=== PATIENT | female | born 1975 | race Caucasian/White ===

== ENCOUNTER → 2020-06-06 16:26 | Outpatient (CLI) | payer BC, SELFPAY ==
--- NOTE | ~2020-06-06 | MM_ITS ---
EXAMINATION: MM scrn chitra implant BI w jaswinder HISTORY: Screening TECHNIQUE: Craniocaudal and mediolateral oblique 3-D tomosynthesis images with implant displacement a nd synthetic 2-D images were generated. Craniocaudal and mediolateral oblique views of the breasts wi thout implant displacement were obtained using full field digital mammography. CAD analysis was submi tted and interpreted. COMPARISON: No prior mammogram is available for comparison at this institution. BREAST PARENCHYMAL COMPOSITION: The breasts are heterogeneously dense, which may obscure small masses . FINDINGS: There are bilateral subpectoral saline implants. There is no evidence of suspicious mass, c alcification, or architectural distortion to suggest malignancy in either breast. There has been no s uspicious interval change. IMPRESSION: 1. No mammographic evidence of malignancy. 2. Recommend routine screening mammography in one year. BI-RADS CATEGORY 1 - NEGATIVE Reviewed, dictated and finalized at location A. E CLASSIFIER
== END ==
PROVIDERS: Visit Provider Advanced Practice Midwife
DX: Z12.31 Encounter for screening mammogram for malignant neoplasm of breast (principal)
CPT/HCPCS: 77063; 77067

== ENCOUNTER 2021-03-15 13:24 | Outpatient (CLI) | payer BC, SELFPAY ==
--- NOTE | ~2021-03-15 | MMUS_ITS ---
EXAMINATION: MM diag chitra implant RT w jaswinder, US breast RT complete HISTORY: Palpable right breast lump TECHNIQUE: Additional 3-D tomosynthesis images of the right breast were performed and synthetic 2-D i mages were generated. CAD analysis was submitted and interpreted. High resolution complete right [address] st ultrasound was performed. COMPARISON: 06/06/2020 BREAST PARENCHYMAL COMPOSITION: Breast composed of scattered areas of fibroglandular density. FINDINGS: MAMMOGRAPHIC FINDINGS: There are no suspicious masses, calcifications or architectural distortion in the right breast to sug gest malignancy. There is a subpectoral saline implant. ULTRASOUND: Complete right breast ultrasound: At 12:00 near the nipple there is a 6 mm cyst. At 1:00, 10 cm from the nipple in the area of palpable concern there is an oval hyperechoic mass with horizontally orient ed striations measuring 1.8 cm, compatible with benign lipoma. At 6:00, 3 cm from the nipple there is a 2 mm cyst. Breast implant identified. IMPRESSION: 1. No evidence for malignancy in the right breast. Benign findings. 2. Routine yearly screening mammogram and regular clinical breast examination are recommended. BI-RADS Category 2: Benign finding(s). Reviewed, dictated and finalized at location A. IMPRESSION: 1. No evidence for malignancy in the right breast. Benign findings. 2. Routine yearly screening mammogram and regular clinical breast examination a re recommended. BI-RADS Category 2: Benign finding(s).
== END 2021-03-15 13:25 | disposition home or self-care (01) ==
LOC: ANHIMG 13:26
PROVIDERS: Visit Provider Advanced Practice Midwife
DX: N63.10 Unspecified lump in the right breast, unspecified quadrant (principal)
CPT/HCPCS: 76641; 77061; 77065; G0279

== ENCOUNTER → 2021-10-01 15:23 | Outpatient (CLI) | payer BC, SELFPAY ==
--- NOTE | ~2021-10-01 | MM_ITS ---
EXAMINATION: MM scrn chitra implant BI w jaswinder HISTORY: Screening mammogram TECHNIQUE: Craniocaudal and mediolateral oblique 3-D tomosynthesis images with implant displacement a nd synthetic 2-D images were generated. Craniocaudal and mediolateral oblique views of the breasts wi thout implant displacement were obtained using full field digital mammography. CAD analysis was submi tted and interpreted. COMPARISON: 03/15/2021 diagnostic right implant mammogram and complete right breast ultrasound 06/06/2020 bilateral implant screening mammogram BREAST PARENCHYMAL COMPOSITION: The breasts are heterogeneously dense, which may obscure small masses . FINDINGS: Status post bilateral augmentation mammoplasty. There is no evidence of suspicious mass, ca lcification, or architectural distortion to suggest malignancy in either breast. There has been no willett spicious interval change. IMPRESSION: 1. No mammographic evidence of malignancy. 2. Recommend routine screening mammography in one year. BI-RADS Category 1: Negative Reviewed, dictated and finalized at location A.
== END ==
PROVIDERS: Visit Provider Advanced Practice Midwife
DX: Z12.31 Encounter for screening mammogram for malignant neoplasm of breast (principal)
CPT/HCPCS: 77063; 77067

== ENCOUNTER 2023-12-08 13:53 | Outpatient (CLI) | payer BC, SELFPAY ==
--- NOTE | ~2023-12-08 | MM_ITS ---
EXAMINATION: MM scrn chitra implant BI w jaswinder HISTORY: Screening mammogram TECHNIQUE: Craniocaudal and mediolateral oblique 3-D tomosynthesis images with implant displacement a nd synthetic 2-D images were generated. Craniocaudal and mediolateral oblique views of the breasts wi thout implant displacement were obtained using full field digital mammography. CAD analysis was submi tted and interpreted. COMPARISON: 10/01/2021, 03/15/2021, 06/06/2020 BREAST PARENCHYMAL COMPOSITION: The breasts are extremely dense, which lowers the sensitivity of mamm ography. FINDINGS: There is no evidence of suspicious mass, calcification, or architectural distortion to sugg est malignancy in either breast. There has been no suspicious interval change. IMPRESSION: No mammographic evidence of malignancy. Recommend routine screening mammography in one year. BI-RADS Category 1: Negative Reviewed, dictated and finalized at [facility].
== END 2023-12-08 13:54 | disposition home or self-care (01) ==
LOC: ANHIMG 13:54
PROVIDERS: Visit Provider Advanced Practice Midwife
DX: Z12.31 Encounter for screening mammogram for malignant neoplasm of breast (principal)
CPT/HCPCS: 77063; 77067

== ENCOUNTER 2024-07-29 13:26 | Outpatient (CLI) | payer BC, SELFPAY ==
--- NOTE | ~2024-07-29 | MMUS_ITS ---
EXAMINATION: US breast RT limited, MM diag chitra implant RT w jaswinder HISTORY: Palpable right breast mass TECHNIQUE: Additional 3-D tomosynthesis images of right were performed and synthetic 2-D images were generated. CAD analysis was submitted and interpreted. High resolution Limited right breast ultrasoun d was performed. COMPARISON: Comparison to multiple prior studies sequentially, with oldest reviewed study dated 05/16. BREAST PARENCHYMAL COMPOSITION: Not dense: There are scattered areas of fibroglandular density. FINDINGS: MAMMOGRAPHIC FINDINGS: There are no suspicious masses, calcifications or architectural distortion in the right breast to sug gest malignancy. ULTRASOUND: Limited right breast ultrasound: At 1:00, 12 cm from the nipple there is an oval capsulated hypoechoi c mass with horizontal striations, compatible with benign lipoma measuring 3.2 x 2.4 x 0.9 cm. No jessa picious masses to suggest malignancy. IMPRESSION: 1. No evidence for malignancy in the right breast. Benign finding. 2. Routine yearly screening mammogram and regular clinical breast examination are recommended. BI-RADS Category 2: Benign finding(s). Reviewed, dictated and finalized at location B. [facility] IMPRESSION: 1. No evidence for malignancy in the right breast. Benign finding. 2. Routine yearly screening mammogram and regular clinical breast examination a re recommended. BI-RADS Category 2: Benign finding(s).
--- OUTSIDE RECORDS SUMMARY | 2024-07-29 13:33 | XMS_ITS | Clinical Summary ---
Author Organization [facility] Address [address] [place] [id number] Care Team Providers Care Career Development Engineer Name Role Phone Edie Palafox [facility] Primary Care Provider + Allergies No known active allergies Medications Alcohol Swabs (ALCOHOL PREP) 70 % Pads 2017 Active Blood Glucose Monitoring Suppl (ONE TOUCH ULTRA MINI) w/Device Kit 2017 Active ONETOUCH DELICA [facility] 2017 Active Norethindrone, Contraceptive, 0.35 MG tablet 2017 Active B-D UF III MINI PEN NEEDLES 31G X 5 MM [facility] U UTD ONCE A DAY WITH LANTUS 1 2017 Active insulin glargine 100 UNIT/ML injection (PEN)Indications :Type 1 diabetes mellitus without complication (CMS/HCC HHS/HCC) Inject 20 Units into the skin 2 (two) times daily. 9 pen 1 2018 Active Additional Information Patient taking differently: 34 UnitsSubcutaneousNightly at bedtime, Indications: Lantus, Reported on 03/18/2021 HUMALOG KWIKPEN 100 UNIT/ML injection (PEN) INJ 20 UNI SC TID 3 2018 Active Continuous Blood Gluc Sensor (FREESTYLE BARI 2 SENSOR) [facility] Will use 2 sensors per month. 2020 Active Glucagon (BAQSIMI ONE PACK) 3 MG/DOSE Powder Baqsimi 3 mg/actuation nasal spray USE 1 SPRAY IN 1 NOSTRIL NEEDED IN CASE OF EMERGENCY FOR HYPOGLYCEMIA 08/30 Active levothyroxine (EUTHYROX) 75 MCG tablet Euthyrox 75 mcg tablet TAKE 1 TABLET BY MOUTH ONCE DAILY 2020 Active ondansetron 4 MG disintegrating tabletIndication s:Nausea Take 1 tablet (4 mg total) by mouth every 8 (eight) hours as needed for Nausea. 20 tablet 2020 Active omeprazole 40 MG capsuleIndicatio ns:Bilious vomiting with nausea Take 1 capsule (40 mg total) by mouth daily. 30 capsule 1 2020 Active Active Problems Problem Noted Date Diagnosed Date Obesity due to excess calories without serious c omorbidity 12/06/2020 Generalized edema 09/18/2020 Overview (03/18/2021): Last Assessment & Plan: Spironolactone Repeat BMP in 6-8 weeks Type 1 diabetes mellitus wit hout complication ([facility]) 04/26/2018 Overview (03/18/2021): Increase lantus to 40 Last Assessment & Plan: Have evaluated the risks and benefits of current therapy versus potential alternatives in terms of improving or controlling disease state and interaction with other medications and condition.. Have discussed implications of therapy compliance regarding future complications with the patient. Will continue current therapy Nontoxic multinodular goiter 06/14/2012 Overview (04/26/2018): US 05/26, repeat 4-6 mos Asthma ([facility]) 05/08/2012 Primary hypothyroidism 05/08/2012 Overview (03/18/2021): check labs. Same meds Immunizations Name Administration Dates Next Due Tdap (Generic) 01/07/2009 Family History Medical History Relation Comments Diabetes Father Hypertension Mother Throat Cancer Mother Thyroid Cancer Mother Relation Status Comments Father Alive Mother Alive thyroid/throat Social History Tobacco Use Types Packs/Day Years Used Date Smoking Tobacco: Former Cigarettes 0.3 27 1 993 - 2020 Smokeless Tobacco: Never Tobacco Cessation:Counseling Given: Yes Comments:trying to quit pt has STOPPED smoking. Alcohol Use Standard Drinks/Week Comments No 0 (1 standard drink = 0.6 oz pur e alcohol) rarely AUDIT-C Answer Date Recorded Frequency of Alcohol Consumption Never 04/26/2018 Average Number of Drinks Not on file 018 Frequency of Binge Drinking Not on file 04/15 PHQ-2 Answer Date Recorded PHQ-2 Score - If the patient scores above 3, please move on to questions 3-9 0 04/24/2021 Comments No Sex and Gender Information Value Date Recorded Sex Assigned at Not on file Legal Sex Female 8:35 PM CDT Gender Identity Not on file Sexual Orientation Not on file Occupation Industry Job Start Date Job End Date Not on file Not on file Not on file Not on file Last Filed Vital Signs Vital Sign Reading Time Taken Comments Blood Pressure 120/72 04/24/2021 3:58 PM GRIND OPERATOR Pulse 75 04/24/2021 3:58 PM GRIND OPERATOR Temperature 36.3 C (97.3 F) 04/24/2021 3:58 PM GRIND OPERATOR Respiratory Rate 16 04/24/2021 3:58 PM GRIND OPERATOR Oxygen Saturation 98% 04/24/2021 3:58 PM GRIND OPERATOR Inhaled Oxygen Concentration - - Weight 83.4 kg (183 lb 12.8 oz) 04/24/2021 3:58 PM GRIND OPERATOR Height 170.2 cm (5' 7 ) 04/24/2021 3:58 PM GRIND OPERATOR Body Mass Index 28.79 04/24/2021 3:58 PM GRIND OPERATOR Plan of Treatment Health Maintenance Due Date Last Done Comments Kidney Health Evaluation 1975 Annual Physical 09/28/1978 Pneumococcal Vaccine: Pediatrics (0 to 5 Years) and At-Risk Patients (6 to 64 Years) (1 of 2 - PCV) 09/28/1981 PHQ-2 (Physician [place]) 1987 Diabetes: Retinopathy Eye Exam 09/28/1993 Hepatitis C 09/28/1993 Hepatitis B Vaccines (1 of 3 - 19+ 3-dose series) 09/28/1994 Mammogram Screening 2015 DTaP, Tdap and Td Vaccines (2 - Td or Tdap) 01/07/2019 01/07/2009 Hemoglobin A1C 06/07/2021 12/06/2020, 03/15, 10/28/2018, Additional history exists Lipid Panel 12/06/2021 12/06/2020, 05/22/2015 COVID-19 Vaccine (3 - 2024-25 season) 2024 09/06/2020, 08/16/2020 Cervical Cancer Screening Pap Smear (Age 30 to 64) Every 3 Years 03/13/2024 03/13/2021 Influenza Adult (#1) 2024 PHQ-2 (Physician [place]) 06/15/2024 Cervical Cancer Screening Pap with HPV Testing (Age 30 to 64) Every 5 Years 03/13/2026 03/13/2021 Cervical Cancer Screening with HPV 03/13/2026 Colorectal Cancer Screening Colonoscopy (10 Years) 05/06/2029 05/06/2019 Meningococcal B Vaccine Aged Out No l onger eligible based on patient's age to complete this topic Meningococcal Vaccine Aged Out No cassie deshaun eligible based on patient's age to complete this topic RSV Immunizations Under 20 Months Aged Out No longer eligible based on patient's age to complete this topic Procedures Procedure Name Priority Date/Time Associated Diagnosis Comments OUTSIDE CYTOPATH CERV/VAG INTERPRET (PAP) Routine 03/13/2021 HEMOGLOBIN, GLYCOSYLATED Routine 12/06/2020 LIPID PANEL Routine 05/22/2015 8:01 AM GRIND OPERATOR from Last 3 Months or Most Recently Relevant to Health Maintenance Results * PAP SMEAR WITH HPV (03/13/2021) 03/13/2021 us Documents Scanned SCANNING Final Result [facility] * HEMOGLOBIN, GLYCOSYLATED (12/06/2020) HGB A1C 6.5 % 12/06/2020 us Doc [facility] Final Result * (ABNORMAL) LIPID PANEL (05/22/2015 8:01 AM GRIND OPERATOR) CHOLESTEROL 152 <200 MG/DL [facility] P TO EPIC CONVERSION TRIGLYCERIDES 91 <150 MG/DL [facility] OUP TO EPIC CONVERSION HDL 39(L) >60 MG/DL [facility] T O EPIC CONVERSION Comment:AN HDL OF >60 IS NO RISK, RISK IS DEFINED <40 LDL (CALCULATED) 95 <100 MG/DL [facility] TO EPIC CONVERSION Comment: AN LDL OF <100 IS OPTIMAL, ELEVATED IS DEFINED >130 BY CURRENT GUIDELINES, LDL GOALS ARE DEPENDENT UPON OTHER RISK FACTORS 05/22/2015 8:01 AM GRIND OPERATOR 05/22/2015 8:01 AM GRIND OPERATOR Narrative [facility] TO EPIC CONVERSION - 05/22/2015 8:01 AM GRIND OPERATOR [AUTO]: This test was reviewed. us [facility] Final Result [facility] TO EPIC CONVERSION from Last 3 Months or Most Recently Relevant to Health Maintenance Insurance Care Teams Career Development Engineer Relationship Specialty Start Date End Date Edie Palafox, ASSOCIATE PROFESSOR OF ANTHROPOLOGY-[employer] [id number], [address] [place] [address] PCP - General Nurse Practitioner Family 04/03/23
--- OUTSIDE RECORDS SUMMARY | 2024-07-29 13:33 | XMS_ITS | Data Portability ---
Author Organization [facility] [place] Address [address] [place] [address] Care Team Providers Care Dairy Lab Technician Name Role Phone TG FLORES Primary Care Provider Assessment Encounter Date Assessment Date Assessment LastModified by Organization Details LastModified Time 03/06/2020 03/06/2020 Annual gynecological exam performed. Patient will come back in a year unless there are new symptoms. Not available 03/06/2020 18:47:37 03/13/2021 03/13/2021 Annual gynecological exam performed. Patient will come back in a year unless there are new symptoms. Suggest Calcium with Vitamin D if not eating in diet. Patient advised to get annual flu shot. Recommend yearly physicals and preform monthly breast exams. Genetic testing is available for patients with family history of cancer. Engage in safe sexual practices, use condoms. Encouraged to have daily exercise. Avoid tobacco and illicit drugs, moderation of alcohol. If BMI greater than 25 dietary consult advised. If you have any questions please call or email. [email or web address] Not available 03/13/2021 17:45:11 02/25/2023 02/25/2023 Annual gynecological exam performed. Patient will come back in a year unless there are new symptoms. Suggest Calcium with Vitamin D if not eating in diet. Patient advised to get annual flu shot. Recommend yearly physicals and preform monthly breast exams. Genetic testing is available for patients with family history of cancer. Engage in safe sexual practices, use condoms. Encouraged to have daily exercise. Avoid tobacco and illicit drugs, moderation of alcohol. If BMI greater than 25 dietary consult advised. If you have any questions please call or email. mammogram order given try the [place] plan for menopausal weight loss Not available 02/25/2023 20:20:18 07/15/2024 07/15/2024 Annual gynecological exam performed. Patient will come back in a year unless there are new symptoms. Suggested Calcium with Vitamin D 1200-1500mg daily. Patient advised to get an annual flu shot in the fall and she could obtain at [facility] or [facility] care clinic. Also to obtain TDap vaccination if you have not had one in the last 10 years. Recommend yearly mammograms. Encouraged monthly self breast exams. Encourage safe sexual practices, to use condoms and limit partners if not already in a monogamous relationship. Engage in daily exercise of low impact aerobic exercise 45-60 minutes 4-5 times weekly. Avoid tobacco and illicit drugs as well as using moderation with alcohol intake less than 1-2 8 oz beverages daily. This lifestyle behavior pattern will lead to less health conditions and longer life span. If BMI greater than 25 weight watchers or dietary consult advised. All questions have been answered. Patient appears to understand information, but if you have any questions please call or respond to this email. order for chest wall US pap collected pill for bcm unless decides to do IUD, will call if desires placement Not available 07/15/2024 17:18:01 Plan of Treatment Reminders Order Date Submit Date Provider Last Modified By Organization Details Last Modified Time Details Appointments None recorded. Lab None recorded. Referral None recorded. Procedures None recorded. Surgeries None recorded. Imaging None recorded. Medication Orders Keely 0.35 mg tablet 023 023 [id number], [address], [place], [id number], 3 20:19:59 Patient TargetsNo targets recorded. Patient Instructions Encounter Date Encounter Id Patient Instructions Last Modified By Organization Details Last Modified Time 03/06/2020 mammogram order given, rec nicotine patches Suggest Calcium with Vitamin D if not eating in diet. Patient advised to get annual flu shot. Recommend yearly physicals and preform monthly breast exams. Genetic testing is available for patients with family history of cancer. Engage in safe sexual practices, use condoms. Encouraged to have daily exercise. Avoid tobacco and illicit drugs, moderation of alcohol. If BMI greater than 25 dietary consult advised. If you have any questions please call or email. Not available 03/07/2020 09:25:50 04/20/2020 [id number] f/u pending pathology Not available 04/20/2020 15:23:34 Reason for Referral None Reported. Results Created Date Observation Date Name Description Value Unit Range Abnormal Flag Note LastModifiedBy Organization Detail LastModifiedTime 03/06/20 20 03/09/2020 pap, LB Pap test thin prep LOW GRADE SQUAMO US INTRAE PITHEL IAL LESION abnormal ACCES BRIAN #: [id number] Sourc e: Cervi wilber/E ndoce rvica l LMP: 020 Date Taken : 03/06 Speci men Type: ThinP rep Vial Date Repor brea: 2019 Clini wilber Data: Cytot ech: Sylvia Colbert T(ASC P) Navjot ewnig MD elect dianelys rivera mei d 2019 at 1:46 PM Speci men Adequ acy: Satis facto ry for evalu ation Some cells obscu red by infla mmati on Endoc ervic al/tr ansfo rmati on zone compo nent prese nt Gener al Categ oriza tion: EPITH ELIAL CELL ABNOR MALIT Y: SEE INTER PRETA TION/ RESUL T Inter preta tion/ Resul t: LOW GRADE SQUAM OUS INTRA EPITH ELIAL LESIO N This speci men has been barb zed by the ThinP rep Imagi ng Syste m, an inter activ e compu ter syste m which remy ts the lab in the scree hermilo of ThinP rep Pap Test slide s. Follo wing imagi ng, the slide was revie wed by a Cytot echno logis t and/o r Patho logis t. D N A A S S A Y S R E P O R T TEST NAME RESUL TS ----- ---- ----- -- HPV High Risk Ellen n (TMA) ThinP rep Vial The human papil lomav irus (HPV) High Risk Óscarelida ewing is an FDA-a pprov ed in-vi tro ampli fied nucle ic acid test for the quali tativ e detec tion of E6/E7 viral mRNA. Resul ts shoul d be corre lated with patie nt prese ntati on, histo ry, cervi wilber cytol ogy and other clini wilber and labor atory findi ngs. See https ://[employer]/s ites/ defau lt/fi 018-0 3- 99527 _002_ .pd f for furth er infor matio n. Test perfo rmed by [employer] [facility] [employer] [facility], d/b/a [facility], [address], [place] [address] , Jonny Sales ra, , Labor atory Dire tor. HPV High Risk *HPV NOT DETEC BREA (TYPE S 16, 18, 31, 33, 35, 39, 45, 51, 52, 56, 58, 59, 66, 68) *HPV: The human papil lomav irus (HPV) High Risk Ellen ewing is an FDA-a pprov ed in-vi tro ampli fied nucle ic acid test for the quali tativ e detec tion of E6/E7 viral mRNA. Resul carmen posadas d be corre lated with patie nt prese ntati on, histo ry, cervi wilber cytol ogy and other clini wilber and labor atory findi ngs. See https ://[employer]/s ites/ defau lt/fi -0 /- 73883 _002_ 01.pd f for furth er infor matio n. Test perfo rmed by [facility] [facility], d/b/a [facility], [address], [place] [address] , Jonny Sales ra, DO, Labor atory Dire tor. End of Repor t Techn ical servi villa provi ded by [employer] [facility] Patho logis [employer], d/b/a [facility] r[facility], [address] [place] [address] Toribio Eagle MD, Labor atorBidRazor Dire tor. Case revie wed and diagn osis rende red at [facility], [facility], d/b/a Senia helms, [address] , [place] [address] Toribio Eagle MD, Labor atory Dire tor. CONFI DENTI AL Not Available [facility] ([facility]) [address], [place], [address], 03/09/2020 15:04:39 03/06/20 20 03/08/2020 HPV DNA, high- risk HPV high risk NOT DETECT ED normal Not Available [facility] ([facility]) [address] [facility], [place], [address], 03/09/2020 15:04:39 04/20/20 20 05/01/2020 surgi wilber patho logy study surgical pathology View Report ACCES BRIAN #: [id number] Patie nt Name: TRACI ROJAS Age-S ex-DO B: 44y F [birth year] Proce dure Date: 04/20 Acces brian Date: 2019 Pt Acct# : Repor t Date: 05/01 Locat ion: OFFIC E Physi eugenio( s): Shy matos P A T H O L O G Y R E P O R T DIAGN OSIS: 1. Endoc ervix , curet tage: Few endoc ervic al gland ular cells , no patho logic abnor malit y. Predo minan tly blood and mucus . 2. Cervi x, biops y: Squam ous mucos a with react nilton penny. 3. Skin, butt area; biops y: Pigme nted kerat osis, consi stent with sebor rheic kerat osis. See comme nt. Comme nts: Speci men #3 conta ins a polyp oid kerat osis with overa ll featu res sugge sting a sebor rheic kerat osis. An immun ohist ochem ical study with p16 demon strat es patch y stain ing. Ki 67 is negat nilton for signi fican tly incre ased or disor ganiz ed proli ferat ion. The featu res are not diagn ostic of a high- grade squam ous intra epith elial lesio n. The case was discu ssed with Shy Murdockjanice matos. She repor brea addit ional detai l that the kerat osis was locat ed appro ximat linda 5 centi meter s from the anus. The patie nt's histo ry is noted of a prior Pap test demon strat ing low grade MARISOL (20- [id number]) . The cervi wilber tissu e studi es are negat nilton for intra epith elial lesio n and invas nilton neopl asm. Speci men #3 was also revie wed by a varinder peace patho patria Contreras MD elect dianelys rivera mei d 05/01 01:30 PM Gross Descr iptio n: 1. Recei abdoul in forma alexander label ed Zirke lbach , Traci e and ECC brush is a wire brist le brush conta ining an aggre gate of bautista-b rown tissu e and mucoi d mater ial measu ring 3.0 x 1.0 x 0.2 cm. The speci men is filte red and entir linda submi tted in casse tte 1A, M/1. 2. Recei abdoul in forma alexander label ed Zirke lbach , Traci e and cervi x bx is a loose aggre gate of white tissu e and mucoi d mater ial measu ring 2.0 x 0.7 x 0.1 cm. The speci men is filte red and entir linda submi tted in casse tte 2A, M/1. 3. Recei abdoul in forma alexander label ed Zirke lbach , Traci e and mole butt area is a raise d, wrink led, philippe skin shave measu ring 0.7 x 0.3 x 0.2 cm. The base is inked blue. The speci men is trise cted and entir linda submi tted in casse tte 3A, 08/13. (JFA, LAC2, lgt) Micro scopi c Descr iptio n: Micro scopi c exami natio n is perfo rmed. Clini wilber Histo ry: Low grade squam ous intra epith elial lesio n on cytol ogic smear of cervi x (LGSI L) (R87. 612); LGSIL on pap Speci men List: 1. ECC 2. Cervi wilber biops y 3. Butt area Consu lts: JFA End of Repor t Techn ical servi villa provi ded by [facility]ie, d/b/a [facility], [address] [place] [address] Toribio Eagle MD, Located Within [facility] [employer]. Case revie wed and diagn osis rende red at [facility] Patho logis [employer], d/b/a [facility], [address], [place] [address] Wilmar Rudolph MD, Labor Electronifie [facility]. CONFI DENTI AL Not Available [facility] ([facility]) [address], [place], [address], 05/01/2020 14:31:29 04/20/20 20 04/20/2020 pregn troy test, urine HCG negati ve Not Available [place] [address], [place], [address], 04/20/2020 15:07:21 03/13/20 21 03/13/2021 IMAGE GUIDE D PAP AND HPV REGAR DLESS image guided Pap, HPV regardless of Pap result SEE RESULT S BELOW CASE REPOR T: Cytol ogy Gynec ologi wilber Repor t Case: [id number] Autho elsa camacho Provi kaylyn: Shy Boyer, KI Colle cted: 03/13 1709 Order ing Locat ion: [place] Patho logy Recei abdoul: 03/14 0104 First Scree n: Bernadine cosme, Arely , [place] Speci men: Scree hermilo Pap - Image d, Cervi x STATE MENT OF ADEQU ACY: Satis facto ry for evalu ation Trans forma tion zone compo nent prese nt FINAL DIAGN OSIS: Negat nilton for Intra epith elial Lesio n or Ronaldaquiles tamara (NIL) Elect dianelys rivera mei d by Arely Schmitt , [place] on 2020 at 9:03 AM ----- ----- ----- ----- ----- ----- ----- ----- ----- ----- ----- ----- ----- ----- ----- ----- ----- ---- HPV RESUL TS: HPV mRNA E6/E7 : No HPV mRNA Detec brea NOTE: This high risk HPV mRNA assay detec ts fourt een high- risk HPV types (16, 18, 31, 33, 35, 39, 45, 51, 52, 56, 58, 59, 66, 68) witho ut diffe renti ation . COMME NT: Note: This speci men was revie wed by a Cytot echno logis t and/o r Patho logis t (as indic ated in this repor t) after evalu ation using the Thinp rep Imagi ng Syste m. CLINI WILBER INFOR MATIO N: Menst rual Statu s: LMP (if appli cable ): 2020 Clini wilber Histo ry/Pr elisa s Pap: Type of Neopl benjamin (if appli cable ): Signi fican t Clini wilber Findi ngs: Other Histo ry: Hormo jem (if appli cable ): PAP EDUCA ANA L NOTE: The Pap Test is a scree hermilo test with an inher ent false negat nilton rate. Liqui d-bas e sampl ing may decre ase, but will not elimi marcelino, false negat nilton resul ts. A negat nilton resul t does not precl ude the prese nce and/o r devel opmen t of disea se, since the prese nce of abnor mal cells in the sampl e depen ds on the locat ion of the lesio n and sampl ing techn ique. Verito nued regul ar scree hermilo is the best metho d of cance r preve ntion . If repor brea cytol ogic findi ng do not corre late with physi wilber and/o r histo rical findi ngs, furth er inves tigat ion is recom emily d, as clini lory vela nted. Not Available [facility] (Lab) [address], [place], [address], 03/19/2021 10:06:55 02/27/20 23 02/26/2023 IMAGE GUIDE D PAP AND HPV REGAR DLESS image guided Pap, HPV regardless of Pap result SEE RESULT S BELOW abnormal CASE REPOR T: Cytol ogy Gynec ologi wilber Repor t Case: [id number] Autho rievgenyn g Provi kaylyn: Shy Boyer, KI Agrawal cted: 02/26 1457 Order ing Locat ion: [place] Patho logy Recei abdoul: 02/27 0321 First Scree n: Noora ni, Moham ed, [place] Patho logis t: Jose Styles MD Speci men: Ellen akhtar Pap - Image d, Cervi x STATE MENT OF ADEQU ACY: Satis facto ry for evalu ation Trans forma tion zone compo nent absen t FINAL DIAGN OSIS: Epith elial Cell Abnor malit y, Squam ous Cell: Atypi wilber Squam ous Cells of Undet ermin ed Signi fican ce (ASC- US). Elect dianelys rivera mei d by Jose Styles MD on 2022 at 10:10 AM ----- ----- ----- ----- ----- ----- ----- ----- ----- ----- ----- ----- ----- ----- ----- ----- ----- ---- HPV RESUL TS: HPV mRNA E6/E7 : No HPV mRNA Detec brea NOTE: This high risk HPV mRNA assay detec ts fourt een high- risk HPV types (16, 18, 31, 33, 35, 39, 45, 51, 52, 56, 58, 59, 66, 68) witho ut diffe renti ation . COMME NT: This speci men was revie wed by a Cytot echno logis t and/o r Patho logis t (as indic ated in this repor t) after evalu ation using the Thinp rep Imagi ng Syste m. CLINI WILBER INFOR MATIO N: Menst rual Statu s: LMP (if appli cable ): Clini wilber Histo ry/Pr eviou s Pap: Type of Neopl benjamin (if appli cable ): Signi fican t Clini wilber Findi ngs: Other Histo ry: Hormo jem (if appli cable ): SUGJORJE STED FOLLO W-UP: Follo w up as warra nted, based on curre nt guide lines and indiv idual patie nt consi derat ions. Not Available [facility] (Lab) [address], [place], [address], 03/02/2023 11:13:56 07/15/19 25 07/15/2024 IMAGE GUIDE D PAP AND HPV REGAR DLESS image guided Pap, HPV regardless of Pap result SEE RESULT S BELOW CASE REPOR T: Cytol ogy Gynec ologi wilber Repor t Case: [id number] Autho elsa camacho Provi kaylyn: Shy Boyer, KI Agrawal cted: 07/15 1615 Order ing Locat ion: [place] Patho logy Recei abdoul: 07/16 1023 First Scree n: Rubia morocho, Toni ed, [place] Patho logis t: Yomaira Jenkins MD Speci men: Ellen akhtar Pap - Image d, Cervi x STATE MENT OF ADEQU ACY: Satis facto ry for evalu ation Trans forma tion zone compo nent prese nt ----- ----- ----- ----- ----- ----- ----- ----- ----- ----- ----- ----- ----- ----- ----- ----- ----- ---- FINAL DIAGN OSIS: Negat nilton for Intra epith elial Lesio n or Deshawn mcdonald (NIL) . Infla mmato ry cell kat[place] es (incl udes typic al repai r). Elect dianelys peace by Yomaira Jenkins MD on 025 at 1525 TIME STAMP ASSEMBLER ----- ----- ----- ----- ----- ----- ----- ----- ----- ----- ----- ----- ----- ----- ----- ----- ----- ---- HPV RESUL TS: HPV mRNA E6/E7 : No HPV mRNA Detec brea NOTE: This high risk HPV mRNA assay detec ts fourt een high- risk HPV types (16, 18, 31, 33, 35, 39, 45, 51, 52, 56, 58, 59, 66, 68) witho ut diffe renti ation . COMME NT: This speci men was revie wed by a Cytot echno logis t and/o r Patho logis t (as indic ated in this repor t) after evalu ation using the Thinp rep Imagi ng Syste m. CLINI WILBER INFOR MATIO N: Menst rual Statu s: LMP (if appli cable ): Clini wilber Histo ry/Pr eviou s Pap: Type of Neopl benjamin (if appli cable ): Signi fican t Clini wilber Findi ngs: Other Histo ry: Hormo jem (if appli cable ): PAP EDUCA ANA L NOTE: The Pap Test is a scree hermilo test with an inher ent false negat nilton rate. Liqui d-bas ed sampl ing may decre ase, but will not elimi marcelino, false negat nilton resul ts. A negat nilton resul t does not precl ude the prese nce and/o r devel opmen t of disea se, since the prese nce of abnor mal cells in the sampl e depen ds on the locat ion of the lesio n and sampl ing techn ique. Verito nued regul ar scree hermilo is the best metho d of cance r preve ntion . If repor brea cytol ogic findi ng do not corre late with physi wilber and/o r histo rical findi ngs, furth er inves tigat ion is recom emily d, as clini lory warra nted. Not Available [facility] (Lab) [address], [place], [address], 07/21/2024 16:28:19 06/08/20 20 06/06/2020 MAMMO , scree hermilo, bilat eral No observ ation record ed. [facility] [address], [place], [address], 06/13/2020 15:51:16 03/15/20 21 03/15/2021 MAMMO , diagn ostic , unila teral No observ ation record ed. jevon [place] [address], [place], [address], 03/20/2021 14:41:57 10/02/19 22 10/01/2021 MAMMO , scree hermilo, bilat eral No observ ation record ed. [address] [place] [address] Imaging [address], [place], [address], 12/31/2021 20:12:10 10/02/19 22 10/01/2021 MAMMO , scree hermilo, bilat eral No observ ation record ed. [email or web address] [place] [facility] [address], [place], [address], 12/31/2021 20:12:11 12/09/19 24 12/08/2023 MAMMO , scree hermilo, bilat eral No observ ation record ed. [facility] [address], [place], [address], 12/09/2023 11:33:13 Result Notes None recorded. Problems Name Problem SNOMED Code Status Onset Date Resolution Date Notes Provider Name and Address Organization Details Recorded Time Female stress incontin ence 03466405 Completed 201103/13/2021 Stress incontin ence, female;R ecorded Elsewher e: No Locat ion: [facility] ource: EHR Legislative Correspondent rayna: N Practi ce ID: 0001 Erick lable Time: 12:00:00 PM Nicole lew [facility] 17:09:[address] Concept Completed 201703/13/2021 Encntr for general adult medical exam w/o abnormal findings ;Recorde d Elsewher e: No Locat ion[facility]: N Practi ce ID: 0001 Erick lable Time: 11:00:00 AM Nicole Sim[facility] 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 17:09:54 Screenin g for malignan t neoplasm of rectum Completed 201503/13/2021 Encounte r for screenin g for malignan t neoplasm of rectum;R ecorded Elsewher e: No Locat ion: [facility]: N Practi ce ID: 0001 Erick lable Time: 01:30:00 PM Nicole lew [facility] 17:09:50 Abdomina l pain [id number] Completed 201603/13/2021 Abdomina l pain;Rec orded Elsewher e: No Locat ion: [facility] ource: EHR Legislative Correspondent rayna: N Practi ce ID: 0001 Erick lable Time: 11:30:00 AM Nicole [facility]s [facility], [facility] 17:09:19 Adult health examinat ion Completed 201403/13/2021 ROUTINE MEDICAL EXAM;Rec orded Elsewher e: No Locat ion: [facility] ource: EHR Legislative Correspondent rayna: N Practi ce ID: 0001 Erick lable Time: 11:30:00 AM Nicole Sims [facility], [facility] 17:09:20 Speciali zed medical examinat ion Completed 201303/13/2021 Gynecolo gical Examinat ion;Andre rded Elsewher e: No Locat ion: [facility] ource: EHR Legislative Correspondent rayna: N Practi ce ID: 0001 Erick lable Time: 11:15:00 AM Nicole Sims louann, [facility] 17:09:56 Screenin g for malignan t neoplasm of cervix Completed 201203/13/2021 Screenin g for malignan t neoplasm s of the cervix;R ecorded Elsewher e: No Locat ion: [facility] ource: EHR Legislative Correspondent rayna: N Practi ce ID: 0001 Erick lable Time: 01:15:00 PM Nicole Sims louann [facility] 17:09:48 Human papillom avirus deoxyrib onucleic acid detected , high risk on cervical specimen [id number] Completed 201703/13/2021 Cervical high risk HPV DNA test positive ;Recorde d Elsewher e: No Locat ion: [facility] ource: EHR Legislative Correspondent rayna: N Practi ce ID: 0001 Erick lable Time: 11:00:00 AM Nicole lew [facility] 1 17:09:31 Low grade squamous intraepi thelial lesion on cervical Papanico laou smear [id number] Completed 201503/13/2021 Low grade intrepit h lesion cyto smr crvx (LGSIL); Recorded Elsewher e: No Locat ion: [facility] ource: [facility] rayna: N Michael ce ID: 0001 Erick lable Time: 01:30:00 PM Nicole Sims [facility], [facility] 17:09:32 Pelvic and perineal pain [id number] Completed 201703/13/2021 Pelvic pain;Rec orded Elsewher e: No Locat ion: [facility] ource: [facility] rayna: N Michael ce ID: 0001 Erick lable Time: 11:00:00 AM Nicole Sims [facility], [facility] 17:09:41 Urinary tract infectio us disease [id number] Completed 201103/13/2021 Urinary Tract Infectio n;Record ed Elsewher e: No Locat ion: [facility] ource: [facility] rayna: N Michael ce ID: 0001 Erick lable Time: 10:15:00 AM Nicole lew [facility] 17:10:00 Female genital organ symptoms [id number] Completed 201103/13/2021 Unspecif ied symptom associat ed with female genital organs;R ecorded Elsewher e: No Locat ion: [facility] ource: [facility] rayna: N Suhati ce ID: 0001 Erick lable Time: 10:15:00 AM Nicole lew [facility] 17:09:26 Pain in limb [id number] Completed 201103/13/2021 Pain in limb;Rec orded Elsewher e: No [facility]: EHR Legislative Correspondent rayna: N Practi ce ID: 0001 Erick lable Time: 10:30:00 AM Nicole lew [facility] 1 17:09:39 Pregnanc y test negative [id number] Completed 201603/13/2021 Encounte r for pregnanc y test, result negative ;Recorde d Elsewher e: No Locat ion: [facility] ource: EHR Legislative Correspondent rayna: N Practi ce ID: 0001 Erick lable Time: 11:30:00 AM Nicole lew [facility] 17:09:45 Atypical squamous cells of undeterm ined signific ance on cervical Papanico laou smear [id number] Completed 201803/13/2021 Atyp squam cell of undet signfc cyto smr crvx (ASC-US) ;Recorde d Elsewher e: No Locat ion: [facility] our[facility]: [facility] Legislative Correspondent rayna: N Practi ce ID: [id number] Erick lable Time: 03:00:00 PM Nicole lew [facility] 1 17:09:22 Removal of intraute rine device Completed 201203/13/2021 REMOVAL OF IUD;Andre rded Elsewher e: No [facility]: N Practi ce ID: 0001 Erick lable Time: 10:00:00 AM Nicole lew [facility] 17:09:46 Urinary incontin ence [id number] Completed 201003/13/2021 Urinary incontin ence, unspecif ied;Prac vu ID: [id number] Nicole lew [facility] 17:09:58 Pre-surg jaqui evaluati on Completed 201103/13/2021 Pre-oper ative examinat page, unspecif ied;Suha vu ID: 0001 Nicole lew, [facility] 17:09:43 Notes:Diabetes type 1 Problem Notes None recorded. Procedures Surgical History Date Name Laterality Status Provider Name and Address Organization Details Recorded Time 07/15/19 25 Date of Last Pap Smear completed Nicole Sims [facility] 07/15/2024 16:26:35 12/08/19 24 Date of Last Mammogram completed Nicole Sims [facility] 07/15/2024 16:28:17 04/20/20 20 Colposcopy completed Shy Hansen CNM [address], [place], [address], [facility] 04/20/2020 15:22:51 04/20/20 20 Excision and closure completed Shy Hansen CNM [address], [place], [address], [facility] 04/20/2020 15:22:57 04/20/20 20 Colposcopy completed Nicole Sims [facility] 03/13/2021 10:09:27 04/20/20 20 Colposcopy completed Nicole Sims [facility] 04/20/2020 15:02:14 06/15/19 19 completed Nicole Sims [facility] 03/07/2020 23:15:07 07/22/19 17 Colposcopy completed Nicole Sims [facility] 03/13/2021 09:26:46 06/15/19 17 Date of Last Colonoscopy completed Nicole Sims [facility] 07/15/2024 16:29:13 06/15/19 17 Colonoscopy completed Nicole Sims [facility] 03/07/2020 23:19:16 06/15/19 12 insertion of transobturator tape for female urinary incontinence completed Nicole Sims [place] [facility] 03/07/2020 23:18:43 Imaging Results Imaging Date Name Status LastModified by Organiz ation Details LastModified Time 06/06/2020 MAMMO, screening, bilateral completed [facility] [address], [place], [address], 06/13/2020 15:51:16 03/15/2021 MAMMO, diagnostic, unilateral completed [facility] [address], [place], [address], 03/20/2021 14:41:57 10/01/2021 MAMMO, screening, bilateral completed [email or web address] [address], [place], [address], 12/31/2021 20:12:10 10/01/2021 MAMMO, screening, bilateral completed [email or web address] [facility] [address], [place], [address], 12/31/2021 20:12:11 12/08/2023 MAMMO, screening, bilateral completed [facility] [address], [place], [address], 12/09/2023 11:33:13 Procedure Notes None recorded. Medical Equipment None Reported. Allergies No known drug allergies Medications Name Sig Start Date Stop Date Status Note LastModified by Organization Details LastModified Time ibuprofen 800 mg tablet TAKE 1 TABLET BY MOUTH EVERY 8 HOURS NEEDED FOR PAIN CONTROL 02/25 completed Not Available Not Available Not Available phentermi ne 37.5 mg tablet 03/13 completed Not Available Not Available Not Available levothyro xine 75 mcg tablet TAKE 1 TABLET BY MOUTH ONCE DAILY active Not Available Not Available No t Available thyroid (bulk) powder 11/09 completed Prescrib ed Elsewher e: Yes Loca tion: [facility] M odify By: davida whitfield DateTime : 04/23/20 11 02:00:00 PM Not Available Not Available Not Available amoxicill in 875 mg tablet TAKE 1 TABLET BY MOUTH EVERY 12 HOURS FOR 10 DAYS 02/25 completed Not Available Not Available Not Available Duricef 500 mg capsule take 2 capsule (1G) by oral route every day 11/09 completed Prescrib ed David e: No Locat ion: Anjana marrero [facility] odify By: davida whitfield DateTime : 07/03/19 12 10:15:00 AM Not Available Not Available Not Available levothyro xine 50 mcg tablet TAKE 1 TABLET BY MOUTH ONCE DAILY 03/13 completed Not Available Not Available Not Available losartan 100 mg tablet active Not Available Not Available Not Available phentermi ne 37.5 mg capsule 03/13 completed Not Available Not Available Not Available spironola ctone 50 mg tablet 03/13 completed Not Available Not Available Not Available Synthroid 03/13 completed Not Available Not Available Not Available Chantix 1 mg tablet 03/13 completed Not Available Not Available Not Available hydrochlo rothiazid e 12.5 mg tablet 03/13 completed Not Available Not Available Not Available Lantus Solostar U-100 Insulin 100 unit/mL (3 mL) subcutane ous pen ADMINIST ER 50 UNITS UNDER THE SKIN DAILY 02/25 completed Not Available Not Available Not Available Humalog KwikPen (U-100) Insulin 100 unit/mL subcutane ous INJECT 20 UNITS UNDER THE SKIN THREE TIMES DAILY active Not Available Not Available No t Available Keely 0.35 mg tablet TAKE 1 TABLET DAILY active Not Available Not Available No t Available Suprep Bowel Prep Kit 17.5 gram-3.13 gram-1.6 gram oral solution 03/06 completed Not Available Not Available Not Available OneTouch Verio test strips USE TO TEST FOUR TIMES DAILY 02/25 completed Not Available Not Available Not Available Chantix Starting Month Box 0.5 mg (11)-1 mg (42) tablets in dose pack 03/13 completed Not Available Not Available Not Available Anusol-HC 2.5 % topical cream with perineal applicato r 03/13 completed Not Available Not Available Not Available Dexcom G6 Transmitt er device USE TRANSMIT TER DIRECTED active Not Available Not Available No t Available OneTouch Delica Plus Lancet 33 gauge 02/25 completed Not Available Not Available Not Available Baqsimi 3 mg/actuat ion nasal spray USE 1 SPRAY IN 1 NOSTRIL NEEDED IN CASE OF EMERGENC Y FOR HYPOGLYC EMIA active Not Available Not Available No t Available FreeStyle Nic 2 Sensor kit USE 2 SENSORS PER MONTH 02/25 completed Not Available Not Available Not Available Semglee (insulin glargine- yfgn) Pen 100 unit/mL (3 mL) subcutane ous ADMINIST ER 50 UNITS UNDER THE SKIN DAILY active Not Available Not Available No t Available Flowflex COVID-19 Antigen Home Test kit 02/25 completed Not Available Not Available Not Available Paxlovid 300 mg (150 mg x 2)-100 mg tablets in a dose pack TK 2 NIRMATRE LVIR TS AND 1 RITONAVI R T TOGETHER PO BID FOR 5 DAYS BID FOR 5 DAYS 02/25 completed Not Available Not Available Not Available Dexcom G7 Sensor device CHANGE EVERY 10 DAYS active Not Available Not Available No t Available Vitals Date Recorded Body height Body mass index (BMI) Body weight Systolic blood pressure Diastolic blood pressure Provider Name and Address Organization Details Last Updated DateTime 03/13/2021 166.37 cm 28.8 kg/m2 02000.26 g 124 mm[Hg] 79 mm[Hg] Nicole Sims [facility] 1 17:07:31 Date Recorded Body height Body mass index (BMI) Body weight Systolic blood pressure Diastolic blood pressure Provider Name and Address Organization Details Last Updated DateTime 02/25/2023 166.37 cm 30.3 kg/m2 73222.59 g 141 mm[Hg] 83 mm[Hg] Nicole Sims [facility] 3 17:45:44 Date Recorded Body height Body mass index (BMI) Body weight Systolic blood pressure Diastolic blood pressure Provider Name and Address Organization Details Last Updated DateTime 03/06/2020 167.64 cm 25.7 kg/m2 88946.19 g 142 mm[Hg] 87 mm[Hg] Nicole Sims [facility] 0 18:48:25 Date Recorded Body height Body mass index (BMI) Body weight Systolic blood pressure Diastolic blood pressure Provider Name and Address Organization Details Last Updated DateTime 07/15/2024 166.37 cm 25.4 kg/m2 24074.82 g 134 mm[Hg] 81 mm[Hg] Nicole Sims [facility] 5 16:25:48 Date Recorded Body height Body mass index (BMI) Body weight Systolic blood pressure Diastolic blood pressure Provider Name and Address Organization Details Last Updated DateTime 04/20/2020 167.64 cm 26.1 kg/m2 08726.96 g 124 mm[Hg] 79 mm[Hg] Nicole Sims [facility] 0 15:01:20 Social History Question Answer Notes LastModified by Organizat ion Details LastModified Time Tobacco Smoking Status Former Smoker Nicole Sims [facility] 02/25/2023 17:45:55 Do You Have An Advance Directive? No [email or web address] Information not available 03/13/2021 What Is Your Level Of Alcohol Consumption? Occasional [id number] Information not available 04/17/2020 Are You Blind Or Do You Have Difficulty Seeing? No [email or web address] Information not available 03/13/2021 What Is Your Level Of Caffeine Consumption? None [email or web address] Information not available 03/13/2021 How Much Tobacco Do You Chew? None [email or web address] Information not available 07/15/2024 In The 14 Days Before Symptom Onset, Have You Had Close Contact With A Laboratory-confir med COVID-19 While That Case Was Ill? No [email or web address] Information not available 03/13/2021 In The 14 Days Before Symptom Onset, Have You Had Close Contact With A Person Who Is Under Investigation For COVID-19 While That Person Was Ill? No [email or web address] Information not available 03/13/2021 Have You Been To An Area Known To Be High Risk For COVID-19? No [email or web address] Information not available 03/13/2021 Are You Deaf Or Do You Have Serious Difficulty Hearing? No Information not available 03/13/2021 What Type Of Diet Are You Following? DIABETIC [email or web address] Information not available 03/13/2021 Do You Or Have You Ever Used E-cigarettes Or Vape? Never Used Electronic Cigarettes [email or web address] Information not available 02/25/2023 What Is The Highest Grade Or Level Of School You Have Completed Or The Highest Degree You Have Received? 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 No [email or web address] Information not available 03/13/2021 What Was The Date Of Your Most Recent Tobacco Screening? 07/15/2024 [email or web address] Information not available 07/15/2024 Do You Use Protection During Sex? No [email or web address] Information not available 03/13/2021 Do You Use Your Seat Belt Or Car Seat Routinely? Yes [email or web address] Information not available 03/13/2021 Do You Have Smoke And Carbon Monoxide Detectors In Your Home? Yes [email or web address] Information not available 03/13/2021 Do You Or Have You Ever Used Smokeless Tobacco? Never Used Smokeless Tobacco [email or web address] Information not available 02/25/2023 How Much Tobacco Do You Smoke? No [email or web address] Information not available 03/13/2021 Do You Feel Stressed (tense, Restless, Nervous, Or Anxious, Or Unable To Sleep At Night)? CA22425-2 [email or web address] Information not available 03/13/2021 Do You Use Any Illicit Or Recreational Drugs? No [email or web address] Information not available 03/13/2021 Do You Use Sunscreen Routinely? No [email or web address] Information not available 03/13/2021 Have You Used IV Drugs? No [email or web address] Information not available 03/13/2021 Do You Or Have You Ever Used Any Other Forms Of Tobacco Or Nicotine? No [email or web address] Information not available 02/25/2023 Sex: Unknown Functional Status Question Answer Note LastModified by Organization D etails LastModified Time Are you able to walk? YESWOREST [email or web address] Information not available 02/25/2023 What is your exercise level? Heavy [email or web address] Information not available 03/13/2021 Mental Status None recorded. Family History Relationship Description Onset Age of this Age Resolved Age Notes LastModified by Organization Details LastModified Time Mother Malignant tumor of pharynx [email or web address] Not available 2024 16:05:58 Mother Disorder of thyroid gland [email or web address] Not available 03/06 18:51:27 Mother Malignant tumor of thyroid gland [email or web address] Not available 2024 16:05:58 Sister Disorder of thyroid gland [email or web address] Not available 03/06 18:51:27 Father Diabetes mellitus Not available 03/06 18:51:36 Notes:Mother: Cancer-throat Medical History Condition Response Allergies (Food, seasonal, environmental ) N Other N Breast Cancer N Drug/Latex Allergies/Reactions N Blood Transfusion N Dermatologic Disorders N Lung Disease N Defects or Inherited Disease N Breast Problem N Gestational Diabetes N Hematologic disorders N Anesthesia Complications N History of STI Y Deep Vein Thrombosis N Polycystic ovary syndrome N Anxiety Disorder Y Autoimmune disease N Arthritis N Infertility N Polyps N Acid Reflux (GERD) Y History of abnormal pap Y Cancer N Stroke N Varicosities N Neurologic/Epilepsy N Endometriosis N High Cholesterol N Headaches N Fibromyalgia N Kidney Disease N Heart Problems N Kidney or Bladder Problems N Thyroid Problems Y GI Problems N Eating Disorder N Anemia N Art (IVF or FET) N Psychiatric Illness N Ovarian Cancer N Diabetes Y Pulmonary (TB, Asthma) N Hepatitis/Liver Disease N No Past Medical History Y Eczema N Urinary Tract Infection N Abuse/Domestic Violence N Asthma Y Trauma/Violence N Depression/ depression Y Heart Disease N Pre-Eclampsia N Hypertension N Osteoporosis N Thrombophilias N Gynecological History Statement/Question Response Date of Last Mammogram 12/08/2023 Date of LMP 09/20/2023 N Was last menstrual period normal Y STIs/STDs Y Date of Last Colonoscopy 06/15/2016 Other Desired Control Method BCPs Abnormal Pap Yes Colposcopy 04/20/2020 Duration of Flow (days) 3 Current Control Method BCPs Age at First Child 26 Frequency of Cycle (Q days) 30 Sexually Active? Y Date of DEXA bone scan Age of first menstrual cycle 15 Date of Last Pap Smear 07/15/2024 Sexual Problems? N LMP Approximate 06/15/2018 N 03/06/2020 Obstetrics History GPAL:G 2 P 2 0 0 2 Type Value Full Term 2 Living 2 Total 2 Past Encounters Encounter ID Performer Location Encounter Start Date Encounter Closed Date Diagnosis/Indication Diagnosis SNOMED-CT Code Diagnosis ICD10 Code Diagnosis Note [id number] Shy Hansen [place] [address],[place] [address] 03/06/2020 18:09:04 03/06/2020 19:45:25 Gynecologic examination 73290131 Z01.419 Sterilizat ion requested 848139526 Z30.2 handout given and appt with dr. benitez scheduled for consult [id number] Shy Hansen [facility] [address],[place] [address] 04/20/2020 14:22:18 04/20/2020 16:50:19 Dysplastic nevus of skin 262872576 D22.9 Low grade squamous intraepithelial lesion on cervical Papanicolaou smear 0748042125 9105 R87.612 [id number] Shy Hansen [facility] [address],[place] [address] 03/13/2021 16:34:53 03/14/2021 20:40:27 Gynecologic examination 14322284 Z01.419 Z11.51 Mass of right breast 734 0629121 7346141 N63.10 diagnostic mammogram ordered [id number] Shy Hansen [facility] [address],[place] [address] 02/25/2023 17:05:09 02/26/2023 10:27:57 Contraception care management 953680956 Z30.9 [id number] Shy Hansen [facility] [address],[place] [address] 07/15/2024 16:05:43 07/18/2024 04:48:02 Health Concerns Section Related Observation LastModified by Organization Detai ls LastModified Time None Recorded Concern Status LastModified by Organization Details LastModified Time None Recorded Advance Directives Directive N: Payers Encounter Date Sequence Insurance Name Policy Number Policy Malin Covered Member ID Malin Member ID Guarantor Name 03/06/2020 1 [place] [id number] 1 Gabi Clay [id number] BS Gabi Landersrkelbach 04/20/2020 1 [place] [id number] 1 Gabi Artisbach [id number] BS Gabi Chilel Zirkelbach 03/13/2021 1 [place] [id number] 1 Gabi Artisbach [id number] BS Gabi Chilel Zirkelbach 02/25/2023 1 [place] [id number] 1 Gabi Artisbach [id number] BS Gabi S Zirkelbach 02/25/2023 2 [place] [id number] 1 Toribio Landerspreston [id number] BS Gabi Chilel Zirkelbach 07/15/2024 1 [place] [id number] 1 Gabi Clay [id number] BS Gabi Chilel Zirkelbach 07/15/2024 2 [place] [id number] 1 Toribio Artisbach [id number] BS Gabi Clay Notes Date Note Type Note Provider Name and Address Organization Details Recorded Time 03/06/2020 text/html Annual GYNReport ed bypatient.Notes:pt here for wwe, hx abnl paps, takes pop as bcm interested in BTL, trying to stop smoking, chnatix did not help at all, type 2 diabetes, does sbe, overdue for mammogram Shy Hansen CNM [address], [place], [address], [facility] 03/07/2020 09:26:11 04/20/2020 text/html LSIL pap, hx of abnl pap, no leep hx, also has lesion on right buttocks that is getting bigger and more irritating Shy Hansen CNM [address], [place], [address], [facility] 04/20/2020 15:23:58 03/13/2021 text/html Annual GYNReport ed bypatient.Notes:no cycle since january, cycles couple x a month for a few months earlier this year, last 2 days very light, weight gain around the middle, has been exercising and eating right losing weight in other places, stopped smoking in may 2020, reviewed thyroid labs on her phone and was wnl, noticed mobile soft mass in right upper breast Shy Hansen CNM [address], [place], [address], [facility] 03/13/2021 17:46:38 02/25/2023 text/html Annual GYNReport ed bypatient.Menstrual cycle:Normal menses Urinary symptoms:No hematuria; No incontinence Vulva:No genital lesion Vagina:Normal vaginal discharge Breast:No breast pain; No breast lump; No nipple discharge Sexual complaints:No sexual complaints; No pain during intercourse; Normal libido Menopausal Symptoms:No menopausal symptoms; Normal vaginal lubrication Psychological symptoms:No depression; No anxiety; No PMDD Preventive measures:Encourage self breast examination; Encourage regular exercise; Encourage no tobacco use; Encourage regular mammograms starting age 40; Followed with yearly pap smearsNotes:small lipoma in between chest, pt denies follow up, ordered at last visit, if any changes can evaluatehaving a harder time losing weight, type 1 diabetes, 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 02/25/2023 20:20:26 07/15/2024 text/html Annual GYNReport ed bypatient.History:no gynecologic complaints Menstrual cycle:no menses continuous ocp Urinary symptoms:No hematuria; No incontinence Vulva:No genital lesion Vagina:Normal vaginal discharge Breast:lipoma/cyst right breast wall encouraged imaging order given Current Contraception:Oral contraceptives; may want IUD info on mirena given Sexual complaints:No sexual complaints; No pain during intercourse; Normal libido Menopausal Symptoms:No menopausal symptoms; Normal vaginal lubrication Psychological symptoms:No depression; No anxiety; No PMDD Preventive measures:Encourage self breast examination; Encourage regular exercise; Encourage no tobacco use; Encourage regular mammograms starting age 40; Followed with yearly pap smears; Mammogram performed within the past yearNotes:job interview for [employer], unsure if wants to take it Shy Hansen, [address], [place], [address], [facility] 07/15/2024 17:18:15 OBGyn Episode Ob Episode Information Episode Created Date Number of Fetuses Patient Bloodtype Patient rh Status Prepregnancy Weight lbs Domestic Partner Domestic Partner Phone Father Name Driver Salesman Status 03/06/20 20 1 CLOSED Fetus Data First Name Last Name Admitted to NICU Weight (g) Sex Living Outcome Pediatric Complications Fetus ID Race Codes Race Delivery Type 3742.13 4 F Full Term 4725 Vaginal Delivery Giorgio Calculation Initial Giorgio Date Initial Exam Date Initial Exam Provider Initial Ultrasound Date Last Menstrual Period Date Ultra Sound Weeks Gestation 0 Eighteen To Twenty Week Giorgio Update Ultra Sound Date Fundal Height At Umbil Quickening Date Ultra Sound Latest Weeks Gestation Final Giorgio Confirmed By Final Giorgio Confirmed Date Final Giorgio Date Ultra Sound Latest Days Gestation 0 0 Menstrual History Last Menstrual Date Menses Monthly On Bcp Conception Prior Menses Frequency Hcg Plus Date Menarche Onset Age Delivery Information Delivery Date Delivery Type Labor Anesthesia Weeks Gestation Incision Type Labor Labor Length Hrs Delivered By Post Complications Tubal Sterilization Discharge Date Comments 2 39 Discharge Information Feeding Method Contraceptive Method Maternal HG B and HCT Levels Ob Episode Information Episode Created Date Number of Fetuses Patient Bloodtype Patient rh Status Prepregnancy Weight lbs Domestic Partner Domestic Partner Phone Father Name Driver Salesman Status 03/06/20 20 1 CLOSED Fetus Data First Name Last Name Admitted to NICU Weight (g) Sex Living Outcome Pediatric Complications Fetus ID Race Codes Race Delivery Type 3486.76 1704 M Full Term 4724 Vaginal Delivery Giorgio Calculation Initial Giorgio Date Initial Exam Date Initial Exam Provider Initial Ultrasound Date Last Menstrual Period Date Ultra Sound Weeks Gestation 0 Eighteen To Twenty Week Giorgio Update Ultra Sound Date Fundal Height At Umbil Quickening Date Ultra Sound Latest Weeks Gestation Final Giorgio Confirmed By Final Giorgio Confirmed Date Final Giorgio Date Ultra Sound Latest Days Gestation 0 0 Menstrual History Last Menstrual Date Menses Monthly On Bcp Conception Prior Menses Frequency Hcg Plus Date Menarche Onset Age Delivery Information Delivery Date Delivery Type Labor Anesthesia Weeks Gestation Incision Type Labor Labor Length Hrs Delivered By Post Complications Tubal Sterilization Discharge Date Comments 4 39 Discharge Information Feeding Method Contraceptive Method Maternal HG B and HCT Levels
--- OUTSIDE RECORDS SUMMARY | 2024-07-29 13:33 | XMS_ITS | Encounter Summary ---
Author Organization [facility] Address [address] [place] [address] Care Team Providers Care Tray Casting Machine Operator Name Role Phone Paty Hendrickson Primary Care Provider [phone] Annabel Peña [facility] Primary Care Provider + Edie Palafox [facility] Primary Care Provider + Encounter Details Date Type Department Care Team (Late st Contact Info) Description 10/11/[address] [facility] Conversion Md, Generic Conversion, Social History Tobacco Use Types Packs/Day Years Used Date Smoking Tobacco: Never Assessed Comments Unknown Sex and Gender Information Value Date Recorded Sex Assigned at Not on file Legal Sex Female 8:35 PM CDT Gender Identity Not on file Sexual Orientation Not on file documented as of this encounter Plan of Treatment Not on file documented as of this encounter Visit Diagnoses Not on filedocumented in this encounter Care Teams Tray Casting Machine Operator Relationship Specialty Start Date End Date Paty Hendrickson PA [address], [place] [id number] PCP - General PHYSICIAN LOCOMOTIVE CRANE OPERATOR HELPER 03/30/18 03/23/19 Annabel Peña [facility] [address] [place] [address] PCP - General Nurse Practitioner Family 03/24/[address] [facility], [address] [place] [address] PCP - General Nurse Practitioner Family 04/03/23 documented as of this encounter
--- OUTSIDE RECORDS SUMMARY | 2024-07-29 13:33 | XMS_ITS | Encounter Summary ---
Author Organization [facility] Address [address] [place] [address] Care Team Providers Care Biosolids Management Technician Name Role Phone Paty Hendrickson Primary Care Provider [phone] Annabel Peña [facility] Primary Care Provider + Edie Palafox [facility] Primary Care Provider + Encounter Details Date Type Department Care Team (Late st Contact Info) Description 08/11/2015 Abstract SJB CONVERSION [address] [place] [address] , Generic Conversion, Social History Tobacco Use Types [...] on filedocumented in this encounter Care Teams Biosolids Management Technician Relationship Specialty Start Date End Date Paty Hendrickson PA [address] [place] [address] PCP - General PHYSICIAN ANIMAL WARDEN 03/30/18 03/23/19 Annabel Peña [facility] [address] [place], [place] [address] PCP - General Nurse Practitioner Family 03/24/19 Edie Palafox [facility] [address], [address] [place] [address] PCP - General Nurse Practitioner Family 04/03/23 documented as of this encounter
--- OUTSIDE RECORDS SUMMARY | 2024-07-29 13:33 | XMS_ITS | Encounter Summary ---
Author Organization [facility] Address [address] [place] [address] Care Team Providers Care Box Spring Frame Builder Name Role Phone Paty Hendrickson Primary Care Provider [phone] Annabel Peña [facility] Primary Care Provider + Edie Palafox [facility] Primary Care Provider + Encounter Details Date Type Department Care Team (Late st Contact Info) Description 08/20/2015 Abstract SJB CONVERSION [address] [place] [address] , Generic Conversion, Social History Tobacco Use [...] on filedocumented in this encounter Care Teams Box Spring Frame Builder Relationship Specialty Start Date End Date Paty Hendrickson PA [address] [place] [address] PCP - General PHYSICIAN MINE MOTOR ENGINEER 03/30/18 03/23/19 Annabel Peña [facility] [address] [place], [place] [address] PCP - General Nurse Practitioner Family 03/24/19 Edie Palafox [facility] [address], [address] [place] [address] PCP - General Nurse Practitioner Family 04/03/23 documented as of this encounter
--- OUTSIDE RECORDS SUMMARY | 2024-07-29 13:33 | XMS_ITS | Clinical Summary ---
Author Organization [facility] [address] Address [address] [place] [address] Care Team Providers Care Biology Adjunct Instructor Name Role Phone Annabel Peña NP Primary Care Provider [phone] Allergies No known active allergies Medications Keely 0.35 mg tablet 0 Active glucagon (Baqsimi) 3 mg/actuation spray,non-aero michael Administer 1 spray (3 mg total) into one nostril as needed (for use in case of emergency for hypoglycemia) 1 each 3 1 Active OneTouch Verio test strips strip Use to test blood sugar 4 times per day. 400 each 3 1 Active Additional Information Patient not taking.Reported on 05/25/2024 HumaLOG 100 unit/mL pen for injection INJECT 20 UNITS UNDER THE SKIN THREE TIMES DAILY 45 mL 3 2 Active SEMGLEE-yfgn 100 unit/mL (3 mL) pen for injection ADMINISTER 50 UNITS UNDER THE SKIN DAILY 45 mL 1 3 Active losartan (COZAAR) 100 mg tablet TAKE 1 TABLET(100 MG) BY MOUTH DAILY 90 tablet 3 4 Active Dexcom G7 Sensor device CHANGE EVERY 10 DAYS 9 each 3 4 Active levothyroxine (SYNTHROID) 75 mcg tablet Take 1 tablet by mouth once daily 90 tablet 3 4 Active LANTUS 100 unit/mL (3 mL) pen for injection ADMINISTER 50 UNITS UNDER THE SKIN DAILY 45 mL 3 2 08/08/19 22 Discontin ued(Formu fely change) Active Problems Problem Noted Date Diagnosed Date Obesity due to excess calories without serious c omorbidity 12/06/2020 Weight gain 09/18/2020 Assessment & Plan (09/18/2020 2:34 PM CDT): Labs Generalized edema 09/18/2020 Assessment & Plan (09/18/2020 2:35 PM CDT): Spironolactone Repeat BMP in 6-8 weeks Smoking trying to quit 05/29/2020 Overview (05/29/2020): start chantix Type 1 diabetes mellitus without complication Overview (04/26/2020): Increase lantus to 40 Assessment & Plan (12/06/2020 12:14 PM CDT): Have evaluated the risks and benefits of current therapy versus potential alternatives in terms of improving or controlling disease state and interaction with other medications and condition.. Have discussed implications of therapy compliance regarding future complications with the patient. Will continue current therapy Primary hypothyroidism 04/26/2020 Overview (04/26/2020): check labs. Same meds Encounters Date Type Department Care Team Description 05/25/2024 9:45 AM CARPENTER/LABOR Office Visit [facility] [address] [facility] [address] [address] Isaac Wheeler MD Type 1 diabetes mellitus without complication (HCC) (Primary Dx); Primary hypothyroidism from Last 3 Months Immunizations Name Administration Dates Next Due Pfizer SARS-CoV-2 Monovalent Vaccination (12+ Yrs) PURPLE 09/06/2020,08/16/2020 Tdap 01/07/2009 Social History Tobacco Use Types Packs/Day Years Used Date Smoking Tobacco: Former Cigarettes 1 30 1 07/1989 - 05/2020 Smokeless Tobacco: Never Tobacco Cessation:Ready to Q uit: Yes; Counseling Given: Yes Comments:Marie perescribed Comments Unknown Sex and Gender Information Value Date Recorded Sex Assigned at Not on file Legal Sex Female 11:02 AM CARPENTER/LABOR Gender Identity Female 09/20/2021 9:58 AM CDT Sexual Orientation Straight 09/20/2021 9: 58 AM CDT Obstetrics History Last Filed Vital Signs Vital Sign Reading Time Taken Comments Blood Pressure 136/90 05/25/2024 9:42 AM CARPENTER/LABOR Pulse 68 05/25/2024 9:42 AM CARPENTER/LABOR Temperature - - Respiratory Rate - - Oxygen Saturation 97% 05/25/2024 9:42 AM CARPENTER/LABOR Inhaled Oxygen Concentration - - Weight 66.2 kg (146 lb) 05/25/2024 9:42 AM CARPENTER/LABOR Height 170.2 cm (5' 7 ) 05/25/2024 9:42 AM CARPENTER/LABOR Body Mass Index 22.87 05/25/2024 9:42 AM CARPENTER/LABOR Plan of Treatment Health Maintenance Due Date Last Done Comments Cervical Cancer Screening 1975 Colon Cancer Screening-Colonoscopy 1975 Depression Screening 1975 Foot Exam 1975 Hepatitis C Screening 1975 Pneumococcal vaccine <65 (1 of 2 - PCV) 09/28/1981 Dilated Eye Exam 09/28/1985 Hepatitis B Screening 09/28/1993 Regular Well Visit/Exam 18-64 09/28/1993 DTaP/Tdap/Td Vaccine (2 - Td or Tdap) 01/07/2019 01/07/2009 Covid-19 Vaccine (4 - 2023-2 5 season) 2024 07/22/2021, 09/06/2020, 08/16/2020 Influenza Vaccine (#1) 2024 Albumin Creatinine Ratio, Urine 09/02/2024 Lipid Panel 09/02/2024 09/03/2023, 11/14, 05/22/2015 TSH Level 09/02/2024 09/03/2023, 020 08/2022, 02/25/2021, Additional history exists eGFR 09/02/2024 09/03/2023, 02/0 08/2022, 10/19/2020, Additional history exists Hemoglobin A1C 11/23/2024 05/25/2024, 07/06/2023, 08/27/2023, Additional history exists Breast Cancer Screening-Mammogram 12/08/2024 12/09/2023, 10/01/2021, 06/08/2020 Procedures Procedure Name Priority Date/Time Associated Diagnosis Comments POCT HEMOGLOBIN A1C Routine 05/25/2024 9 :49 AM CARPENTER/LABOR Type 1 diabetes mellitus without complication (HCC) COMPREHENSIVE METABOLIC PANEL Routine 09/03/2023 6:54 AM CDT Fatigue, unspecified type LIPID PANEL Routine 09/03/2023 6:54 AM CDT ALBUMIN CREATININE RATIO, URINE Routine 09/03/2023 6:54 AM CDT Type 1 diabetes mellitus without complication (CMS/HCC) (HCC) TSH Routine 09/03/2023 6:54 AM CDT from Last 3 Months or Most Recently Relevant to Health Maintenance Results * POCT hemoglobin A1c (05/25/2024 9:49 AM CARPENTER/LABOR) Hemoglobin A1C, POC 7.6 4.0 - 5.6 % Blood 05/25/2024 9:49 AM CARPENTER/LABOR Isaac Wheeler MD POINT OF CARE TEST ORDER AFSHAN Final Result * Albumin Creatinine Ratio, Urine (09/03/2023 6:54 AM CDT) Creatinine, ur 47 20 - 275 mg/dL [facility] Microalbumin, ur 0.4 See Note: mg/dL [facility] Comment: Reference Range: Reference Range Not established Microalbumin/creat ratio 9 <30 mg/g creat [facility] Comment: The ADA defines abnormalities in albumin excretion as follows: Albuminuria Category Result (mg/g creatinine) Normal to Mildly increased <30 Moderately increased 30-299 Severely increased > OR = 300 The ADA recommends that at least two of three specimens collected within a 3-6 month period be abnormal before considering a patient to be within a diagnostic category. Urine 09/03/2023 6:54 AM CDT 09/03/2023 6:55 AM CDT Narrative [facility] - 09/04/2023 12:48 PM CDT FASTING:YES FASTING: YES Dorothy Tran PRODUCT DIRECTOR LAB URINE ORDERABLES Final Re sult Performing Organization Address [facility] Phone Number [facility] [address] [place] [address] * TSH (09/03/2023 6:54 AM CDT) Pathologist [facility] TSH 3.73 mIU/L [facility] Comment: Reference Range > or = 20 Years 0.40-4.50 Ranges First trimester 0.26-2.66 Second trimester 0.55-2.73 Third trimester 0.43-2.91 09/03/2023 6:54 AM CDT 09/03/2023 6:55 AM CDT Narrative [facility] - 09/04/2023 12:48 PM CDT FASTING:YES FASTING: YES Dorothy Tran PRODUCT DIRECTOR LAB BLOOD ORDERABLES Final Re sult Performing Organization Address [facility] Phone Number [facility] [address] [place] [address] * Lipid panel (09/03/2023 6:54 AM CDT) Pathologist [facility] Cholesterol 128 <200 mg/dL [facility] HDL 50 > OR = 50 mg/dL [facility] Triglycerides 70 <150 mg/dL [facility] LDL 63 mg/dL (calc) [facility] Comment: Reference range: <100 Desirable range <100 mg/dL for primary prevention; <70 mg/dL for patients with CHD or diabetic patients with > or = 2 CHD risk factors. LDL-C is now calculated using the Blanca calculation, which is a validated novel method providing better accuracy than the Friedewald equation in the estimation of LDL-C. Tanvir SS et al. CARLEE. 2013;310(19): 1557-1469 (http://education.Anghami.Sanitors/faq/GKV592) Chol/HDL ratio 2.6 <5.0 (calc) [facility] Non-HDL, (LDL+VLDL) 78 <130 mg/dL (calc) [facility] Comment: For patients with diabetes plus 1 major ASCVD risk factor, treating to a non-HDL-C goal of <100 mg/dL (LDL-C of <70 mg/dL) is considered a therapeutic option. 09/03/2023 6:54 AM CDT 09/03/2023 6:55 AM CDT Narrative [facility] - 09/04/2023 12:48 PM CDT FASTING:YES FASTING: YES us Dorothy Tran PRODUCT DIRECTOR LAB BLOOD ORDERABLES Final Re sult [facility] [address] [place] [address] * Comprehensive metabolic panel (09/03/2023 6:54 AM CDT) Pathologist [facility] Glucose 76 65 - 99 mg/dL [facility] Comment: Fasting reference interval BUN 13 7 - 25 mg/dL [facility] Creatinine 0.57 0.50 - 0.99 mg/dL [facility] eGFR 113 > OR = 60 mL/min/1.7 3m2 [facility] BUN/creat ratio SEE NOTE: 6 22 (calc) [facility] Comment: Not Reported: BUN and Creatinine are within reference range. Sodium 140 135 - 146 mmol/L [facility] Potassium, pl 4.2 3.5 - 5.3 mmol/L [facility] Chloride 104 98 - 110 mmol/L [facility] CO2 27 20 - 32 mmol/L [facility] Calcium 9.3 8.6 - 10.2 mg/dL [facility] Protein, sr 6.5 6.1 - 8.1 g/dL [facility] Albumin 4.1 3.6 - 5.1 g/dL [facility] GLOBULIN 2.4 1.9 - 3.7 g/dL (calc) [facility] Alb/glob ratio 1.7 1.0 - 2.5 (calc) [facility] Bilirubin, total 0.5 0.2 - 1.2 mg/dL [facility] Alk phos 58 31 - 125 U/L [facility] AST 16 10 - 35 U/L [facility] ALT (SGPT) 13 6 - 29 U/L [facility] Blood 09/03/2023 6:54 AM CDT 09/03/2023 6:55 AM CDT Narrative [facility] - 09/04/2023 12:48 PM CDT FASTING:YES FASTING: YES us Dorothy Tran PRODUCT DIRECTOR LAB BLOOD ORDERABLES Final Re sult [facility] [address] [place] [address] from Last 3 Months or Most Recently Relevant to Health Maintenance Insurance ANTHEM ACCESS ANTHEM ACCESS CHOICE Care Teams Biology Adjunct Instructor Relationship Specialty Start Date End Date Annabel Peña [place] [address] [address] PCP - General Nurse Practitioner 05/23/21
--- OUTSIDE RECORDS SUMMARY | 2024-07-29 13:33 | XMS_ITS | Referral Summary ---
Author Organization [facility] [address] Address [address] [place] [address] Care Team Providers Care Code Inspector Name Role Phone Annabel Peña NP Primary Care Provider [phone] Encounters Date Type Department Care Team Description 05/25/2024 9:45 AM GOVERNMENT SALES MANAGER Office Visit [facility] [address] [facility] [address] [facility] [place] [address] Isaac Wheeler MD Type 1 diabetes mellitus without complication (HCC) (Primary Dx); Primary hypothyroidism from Last 3 Months Allergies No known active allergies Medications Keely [...] 04/26/2020 Overview (04/26/2020): check labs. Same meds Immunizations Name Administration Dates Next Due Pfizer SARS-CoV-2 Monovalent Vaccination (12+ Yrs) PURPLE 09/06/2020,08/16/2020 Tdap 01/07/2009 Social History Tobacco Use Types Packs/Day Years Used Date Smoking Tobacco: Former Cigarettes 1 30 1 07/1989 - 05/2020 Smokeless Tobacco: Never Tobacco Cessation:Ready to Q uit: Yes; Counseling Given: Yes Comments:Marie nguyenscribed Comments Unknown Sex and Gender Information Value Date Recorded Sex Assigned at Not on file Legal Sex Female 11:02 AM GOVERNMENT SALES MANAGER Gender Identity Female 09/20/2021 9:58 AM CDT Sexual Orientation Straight 09/20/2021 9: 58 AM CDT Last Filed Vital Signs Vital Sign Reading Time Taken Comments Blood Pressure 136/90 05/25/2024 9:42 AM GOVERNMENT SALES MANAGER Pulse 68 05/25/2024 9:42 AM GOVERNMENT SALES MANAGER Temperature - - Respiratory Rate - - Oxygen Saturation 97% 05/25/2024 9:42 AM GOVERNMENT SALES MANAGER Inhaled Oxygen Concentration - - Weight 66.2 kg (146 lb) 05/25/2024 9:42 AM GOVERNMENT SALES MANAGER Height 170.2 cm (5' 7 ) 05/25/2024 9:42 AM GOVERNMENT SALES MANAGER Body Mass Index 22.87 05/25/2024 9:42 AM GOVERNMENT SALES MANAGER Plan of Treatment Not on file Procedures Procedure Name Priority Date/Time Associated Diagnosis Comments POCT HEMOGLOBIN A1C Routine 05/25/2024 9 :49 AM GOVERNMENT SALES MANAGER Type 1 diabetes mellitus without complication (HCC) [...] * POCT hemoglobin A1c (05/25/2024 9:49 AM GOVERNMENT SALES MANAGER) Hemoglobin A1C, POC 7.6 4.0 - 5.6 % Blood 05/25/2024 9:49 AM GOVERNMENT SALES MANAGER Isaac Wheeler MD POINT OF CARE TEST [...] PM CDT FASTING:YES FASTING: YES Dorothy Tran CLOTH WINDER LAB URINE ORDERABLES Final Re sult Performing Organization Address [facility] de Phone Number [facility] [address] [place] [address] * TSH (09/03/2023 6:54 AM CDT) Pathologist [facility] TSH 3.73 mIU/L [facility] Comment: Reference Range > or = 20 Years 0.40-4.50 Ranges First trimester 0.26-2.66 Second trimester 0.55-2.73 Third trimester 0.43-2.91 09/03/2023 6:54 AM CDT 09/03/2023 6:55 AM CDT Narrative [facility] - 09/04/2023 12:48 PM CDT FASTING:YES FASTING: YES Dorothy Tran CLOTH WINDER LAB BLOOD ORDERABLES Final Re sult Performing Organization Address [facility] Co de Phone Number [facility] [address] [place] [address] * Lipid panel (09/03/2023 6:54 AM CDT) Cholesterol 128 <200 mg/dL [facility] [...] LDL-C. Tanvir SS et al. CARLEE. 2013;310(19): 1745-0849 (http://education.Nasza-klasa.pl/faq/RQI166) Chol/HDL ratio 2.6 <5.0 (calc) [facility] [...] PM CDT FASTING:YES FASTING: YES Dorothy Tran CLOTH WINDER LAB BLOOD ORDERABLES Final Re sult [facility] [address] [facility] [place] [address] * Comprehensive metabolic panel (09/03/2023 6:54 AM CDT) Pathologist [facility] Glucose 76 65 - 99 mg/dL [facility] Comment: Fasting reference interval BUN 13 7 - 25 mg/dL [facility] Creatinine 0.57 0.50 - 0.99 mg/dL [facility] eGFR 113 > OR = 60 mL/min/1.7 3m2 [facility] BUN/creat ratio SEE NOTE: 6 - 22 (calc) [facility] Comment: Not [...] CDT FASTING:YES FASTING: YES us Dorothy Tran CLOTH WINDER LAB BLOOD ORDERABLES Final Re sult [facility] [address] [place] [phone] from Last 3 Months or Most Recently Relevant to Health Maintenance Insurance [facility] ACCESS ANTHEM ACCESS CHOICE Care Teams Code Inspector Relationship Specialty Start Date End Date Annabel Peña [place] [address] [address] PCP - General Nurse Practitioner 05/23/21
--- OUTSIDE RECORDS SUMMARY | 2024-07-29 13:33 | XMS_ITS | Encounter Summary ---
Author Organization [facility] Address [address] [place] [address] Care Team Providers Care Conveyor Mechanic Name Role Phone Paty Hendrickson Primary Care Provider [phone] Annabel Peña [facility] Primary Care Provider + Edie Palafox [facility] Primary Care Provider + Encounter Details Date Type Department Care Team (Late st Contact Info) Description 08/09/2015 Abstract SJB CONVERSION [address] [place] [address] , Generic Conversion, Social History Tobacco Use [...] on filedocumented in this encounter Care Teams Conveyor Mechanic Relationship Specialty Start Date End Date Paty Hendrickson PA [address] [place] [address] PCP - General PHYSICIAN TRADE MANAGER 03/30/18 03/23/19 Annabel Peña [facility] [address] [place], [place] [address] PCP - General Nurse Practitioner Family 03/24/19 Edie Palafox [facility] [address] [place] [address] PCP - General Nurse Practitioner Family 04/03/23 documented as of this encounter
== END 2024-07-29 13:27 | disposition home or self-care (01) ==
PROVIDERS: Visit Provider Advanced Practice Midwife
DX: N63.10 Unspecified lump in the right breast, unspecified quadrant (principal)
CPT/HCPCS: 76642; 77061; 77065; G0279